=== PATIENT | male | born 1980 | race American Indian/Alaskan Native ===

== ENCOUNTER 2019-03-25 10:07 | Emergency (ER) | payer OTHER ==
[2019-03-25 10:20] VITALS: BP 138/84
[2019-03-25] MEDS ORDERED: BICILLIN L-A IM ONE (11:08)
[2019-03-25] MEDS ORDERED: DECADRON IM ONE (11:08)
--- NOTE | 2019-03-25 11:09 | Emergency Department Report ---
ED ENT HPI - General Chief complaint: Sore Throat Stated complaint: THROAT PAIN/FEVER Time Seen by Provider: 03/25/19 10:59 Source: patient Mode of arrival: Ambulatory Limitations: No Limitations - History of Present Illness MD complaint: sore throat, difficulty swallowing (secondary to pain) -: days(s) (2) Location: throat Severity: moderate Severity scale (0 -10): 6 Quality: burning, aching Consistency: constant Improves with: none Worsens with: swallowing Associated Symptoms: fever, cough (minimal and non productive), pain with swallowing, sore throat. denies: gum swelling, toothache, tinnitus, hearing loss, discharge from ear, rhinorrhea - Related Data Previous Rx's Medication Instructions Recorded Last Taken Type HYDROcodone/ACETAMINOPHEN 15 ml PO Q6H PRN #150 solution 03/25/19 Unknown Rx [Hydrocodon-Acetamin 7.5-325/15] Allergies Allergy/AdvReac Type Severity Reaction Status Date / Time No Known Allergies Allergy Unverified 03/25/19 10:09 ED Dental HPI - General Chief complaint: Sore Throat Stated complaint: THROAT PAIN/FEVER Time Seen by Provider: 03/25/19 10:59 Source: patient Mode of arrival: Ambulatory Limitations: No Limitations - Related Data Previous Rx's Medication Instructions Recorded Last Taken Type HYDROcodone/ACETAMINOPHEN 15 ml PO Q6H PRN #150 solution 03/25/19 Unknown Rx [Hydrocodon-Acetamin 7.5-325/15] Allergies Allergy/AdvReac Type Severity Reaction Status Date / Time No Known Allergies Allergy Unverified 03/25/19 10:09 ED Review of Systems ROS: Stated complaint: THROAT PAIN/FEVER Other details as noted in HPI Comment: All other systems reviewed and negative ED Past Medical Hx - Past Medical History Previous Medical History?: No - Surgical History Past Surgical History?: No - Social History Smoking Status: Current Every Day Smoker Substance Use Type: Alcohol - Medications Home Medications: Home Medications Medication Instructions Recorded Confirmed Last Taken Type HYDROcodone/ACETAMINOPHEN 15 ml PO Q6H PRN #150 solution 03/25/19 Unknown Rx [Hydrocodon-Acetamin 7.5-325/15] ED Physical Exam - General Limitations: No Limitations General appearance: alert, in no apparent distress - Head Head exam: Present: atraumatic, normocephalic - Eye Eye exam: Present: normal appearance - ENT ENT exam: Present: mucous membranes moist - Expanded ENT Exam Expanded Mouth exam: Present: tongue normal. Absent: tongue elevation Throat exam: Positive: tonsillar erythema, tonsillomegaly, other (patient with palatal petechiae) - Neck Neck exam: Present: normal inspection, lymphadenopathy (anterior cervical) - Respiratory Respiratory exam: Present: normal lung sounds bilaterally. Absent: respiratory distress, wheezes, rales, rhonchi - Cardiovascular Cardiovascular Exam: Present: regular rate, normal rhythm, normal heart sounds. Absent: systolic murmur, diastolic murmur, rubs, gallop - GI/Abdominal GI/Abdominal exam: Present: soft, normal bowel sounds. Absent: distended, tenderness, guarding, rebound, rigid - Rectal Rectal exam: Present: deferred - Extremities Exam Extremities exam: Present: normal inspection - Back Exam Back exam: Present: normal inspection - Neurological Exam Neurological exam: Present: alert, oriented X3 - Psychiatric Psychiatric exam: Present: normal affect, normal mood - Skin Skin exam: Present: warm, dry, intact, normal color. Absent: rash ED Course Vital Signs 03/25/19 10:15 Temperature 100.1 F H Pulse Rate 84 Respiratory 16 Rate Blood Pressure 138/84 O2 Sat by Pulse 99 Oximetry ED Medical Decision Making - Medical Decision Making Patient[facility] criteria for empiric treatment for strep. Patient given Bicillin and Decadron here and will be DC'd home with meds for symptomatic relief. Critical care attestation.: If time is entered above; I have spent that time in minutes in the direct care of this critically ill patient, excluding procedure time. ED Disposition Clinical Impression: Acute bacterial tonsillitis Disposition: DC- TO HOME OR SELFCARE Is pt being admited?: No Does the pt Need Aspirin: No Condition: Stable Instructions: Strep Throat (ED) Referrals: TOMI IMTTAL MD [Primary Care Provider] - 3-5 Days Time of Disposition: 11:08
== END 2019-03-25 11:22 | disposition home or self-care (01) ==
LOC: ED 10:07
DX: J03.00 Acute streptococcal tonsillitis, unspecified (principal); F17.200 Nicotine dependence, unspecified, uncomplicated
CPT/HCPCS: 96372; 99282; J0561; J1100